=== PATIENT | male | born 1995 | race African-American/Black ===

== ENCOUNTER 2020-12-21 08:44 | Emergency (ER) | payer MEDICAID, SELFPAY ==
[2020-12-21 08:48] VITALS: BP 146/78; PULSE 79; RESP 16; TEMP 36.7; O2SAT 100
--- NOTE | 2020-12-21 09:03 | DI.RAD_ITS ---
Exam(s) XR HAND RT COMPLETE EXAM: XR HAND RT COMPLETE CLINICAL HISTORY: right hand. TECHNIQUE: 2D digital imaging was performed. COMPARISON: CR RIGHT LITTLE FINGER from 04/28/2014 FINDINGS: There is no evidence of acute fracture or dislocation. No radiopaque foreign body. No osseous lesio ns. IMPRESSION: No fracture evident. DATA REPOSITORY: RADIATION DOSE DELIVERED:
--- NOTE | 2020-12-21 09:20 | ED.GENADUL_ITS ---
Discharge Plan Disposition Patient Disposition: HOME Condition: Good Discharge Details Clinical Impression: Contusion of hand, right Primary Care Provider: Florencio Toure ED Provider: Nanci Steel Home Meds and New Rx's Prescriptions: No Action No Known Home Meds RF: 0 Discharge Instructions Instructions: Contusion in Adults (ED) Additional Instructions: motrin 600mg every 8 hours with food repeat evaluation in pcp in 2 weeks with ongoing pain return with persistent or worsening symptoms rest hand as much as possible Stand Alone Forms: Work Release Medical Decision Making Per radiology interpretation in my review there is no evidence of fracture to right hand Patient will take ibuprofen and Tylenol for pain Return precautions discussed patient expressed understanding, will take extra precautions to rest his hand Work note supplied Repeat images for persistent pain HPI General Mode of arrival: ambulatory . Date/Time Provider Initiated Documentation: 12/21/20 08:52 . Limitations to Documentation: no limitations . Information obtained by: patient . HPI Narrative: This 25-year-old male presents with right hand pain after a trip and fall 2 weeks ago. When he saw a lot of subsequently landed on his hand. He denies any additional injuries. He has had pain with the event occurred. States the pain is exacerbated with making. Describes the pain as an aching sensation predominantly to his right second digit and right fifth digit. Denies any strength or sensation change. Has not taken any [id number] medication. Related Data Home Medications Medication Instructions Recorded Confirmed Unknown [No Known Home Meds] 12/21/20 12/21/20 Allergies Allergy/AdvReac Type Severity Reaction Status Date / Time No Known Allergies Allergy Verified 12/21/20 08:52 General Stated Complaint: Orthopedic SUMIT: 4 Review of Systems Narrative: Review of systems obtained x3 and negative aside from where indicated in HPI PFSH Family History Mother Arthritis Father Essential hypertension Arthritis Sister Asthma Sister Neoplasm Sister No problems noted. Brother No problems noted. Grandfather No problems noted. Grandfather No problems noted. Grandmother No problems noted. Grandmother Diabetes Social History (Updated 09/28/18 @ 10:05 by Sandra Cortes LPN) Smoking/Tobacco Use Status: Current every day Tobacco Type: cigarettes Tobacco: How many years used: 4 Quit status: quit date established Smoking risk assessment performed?: Yes Alcohol Intake: never Drug use: Never Substance use type: does not use Household members: significant other and children Housing: apartment Communication Needs: Corrective Lenses What is your relationship status?: living with partner Panel score (0-1 are the most socially isolated patients): 1 What type of physical activity do you participate in: none Seatbelt use: always 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 Working smoke detector in home: Yes Fire extinguisher in home: Yes Carbon monox detector in home: Yes Do you feel safe at home: Yes Do you feel safe in your relationship?: Yes Exam Extrem Other: Right hand with tenderness to proximal phalanx on right hand, no visible sign of trauma Neurovascularly intact Also tenderness to fifth metacarpal, no visible sign of trauma, neurovascularly intact, no wrist tenderness Course Vital Signs Vital signs: Vital Signs Temperature 36.7 C 12/21/20 08:48 Pulse 79 12/21/20 08:48 Respiratory Rate 16 12/21/20 08:48 Blood Pressure 146/78 H 12/21/20 08:48 Pulse Oximetry 100 12/21/20 08:48 Temperature 36.7 C 12/21/20 08:48 Temperature Source Skin 12/21/20 08:48 Pulse 79 12/21/20 08:48 Respiratory Rate 16 12/21/20 08:48 Respiratory Effort Non-Labored 12/21/20 08:48 Blood Pressure 146/78 H 12/21/20 08:48 Blood Pressure Position Sitting 12/21/20 08:48 Pulse Oximetry 100 12/21/20 08:48 Oxygen Delivery Method Room Air 12/21/20 08:48 Oxygen Flow Rate 0 12/21/20 08:48 Pain Level 6 12/21/20 08:53
== END 2020-12-21 09:26 | disposition home or self-care (01) ==
PROVIDERS: Emergency Provider Physician Assistant; PCP Family Medicine
DX: S60.221A Contusion of right hand, initial encounter (principal); W01.0XXA Fall on same level from slipping, tripping and stumbling without subsequent striking against object, initial encounter
CPT/HCPCS: 99283; 73130; 99282

== ENCOUNTER 2021-03-17 16:20 | Emergency (ER) | payer MEDICAID, SELFPAY | END 2021-03-17 16:42 | LOC: ER 16:26 | PROVIDERS: PCP Family Medicine | DX: R69 Illness, unspecified (principal) ==

== ENCOUNTER 2021-06-17 11:08 | Emergency (ER) | payer MEDICAID, SELFPAY ==
[2021-06-17 11:12] VITALS: BP 133/80; PULSE 89; RESP 16; TEMP 37.1; O2SAT 100
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
== END 2021-06-17 11:38 | disposition home or self-care (01) ==
PROVIDERS: Emergency Provider Emergency Medicine; PCP Family Medicine
DX: T23.221A Burn of second degree of single right finger (nail) except thumb, initial encounter (principal); X15.0XXA Contact with hot stove (kitchen), initial encounter
CPT/HCPCS: 16020

== ENCOUNTER 2022-01-04 21:33 | Emergency (ER) | payer MEDICAID, SELFPAY ==
[2022-01-04 21:47] VITALS: BP 138/87; PULSE 82; RESP 16; TEMP 37.1; O2SAT 100
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
== END 2022-01-04 22:18 | disposition home or self-care (01) ==
PROVIDERS: Emergency Provider Student in an Organized Health Care Education/Training Program; PCP Family Medicine
DX: S61.211A Laceration without foreign body of left index finger without damage to nail, initial encounter (principal); F17.210 Nicotine dependence, cigarettes, uncomplicated; W27.4XXA Contact with kitchen utensil, initial encounter
CPT/HCPCS: 99281; 99282

== ENCOUNTER 2022-11-02 22:48 | Emergency (ER) | payer MEDICAID, SELFPAY ==
[2022-11-02 22:53] VITALS: BP 131/60; PULSE 110; RESP 16; TEMP 36.7; O2SAT 98
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
[2022-11-02] MEDS: Clindamycin 150 MG CAP, 12 CAPS/BTL 450 MG PO (23:11)
== END 2022-11-02 23:14 | disposition home or self-care (01) ==
PROVIDERS: Emergency Provider Student in an Organized Health Care Education/Training Program; PCP Family Medicine
DX: L03.113 Cellulitis of right upper limb (principal)
CPT/HCPCS: 99283

== ENCOUNTER 2023-03-02 19:15 | Emergency (ER) | payer MEDICAID, SELFPAY ==
[2023-03-02 19:19] VITALS: BP 171/109; PULSE 66; RESP 20; TEMP 36.6; O2SAT 99
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
[2023-03-02 20:23] VITALS: BP 147/97
[2023-03-02 20:45] LABS: COVID-19 PCR Negative (Negative); Influenza A PCR Negative (Negative); Influenza B PCR Negative (Negative); RSV PCR Negative (Negative)
[2023-03-02 20:50] LABS: Source Nasopharynx
--- NOTE | 2023-03-03 16:00 | NUR.NOTE ---
Accessed pt chart to fax the note to [facility]. Nursing Note:
== END 2023-03-02 20:33 | disposition home or self-care (01) ==
PROVIDERS: Emergency Provider Nurse Practitioner Family; PCP Family Medicine
DX: H10.32 Unspecified acute conjunctivitis, left eye; R03.0 Elevated blood-pressure reading, without diagnosis of hypertension
CPT/HCPCS: 87637; 99283

== ENCOUNTER 2023-10-03 07:07 | Emergency (ER) | payer SELFPAY ==
--- NOTE | 2023-10-03 07:00 | RT.EKG_ITS ---
APPROVED REPORT Exam: Resting ECG Reason for Exam: Dyspnea, AMS Patient Location: E HR:92 bpm ECG Measurements Heart Rate 92 AXIS DC 193 P 54 QRSd 98 QRS 46 QT 348 T 46 QTc 431 Conclusion Sinus rhythm 92 normal axis no stemi
[2023-10-03 07:12] VITALS: BP 192/89; PULSE 95; RESP 18; TEMP 37.2; O2SAT 96
--- NOTE | 2023-10-03 07:15 | DI.CT_ITS ---
Exam(s) CT HEAD WO EXAM: CT HEAD WO CLINICAL HISTORY: AMS. TECHNIQUE: Imaging Protocol: Axial computed tomography images with coronal and sagittal reformatted images were created and reviewed COMPARISON: CT HEAD WITHOUT CONTRAST from 06/12/2012 FINDINGS: Ventricles and Extra axial spaces: Normal in size and morphology for the patient's age. Hemorrhage: None. Cerebral parenchyma: Normal. Midline shift: None. Brainstem/Cerebellum: Normal. Calvarium: Normal. Visualized Paranasal sinuses/Mastoids: There is been prior sinus surgery involving the maxillary sinu ses bilaterally. There is mucosal thickening seen in the maxillary sinuses and ethmoid air cells christiano aterally. No fluid levels are seen. Soft Tissues: Unremarkable. IMPRESSION: No acute intracranial process. RADIATION DOSE DELIVERED: 835.87mGy.cm Total DLP DATA REPOSITORY: All CT scans at this facility are submitted to the National Radiology Data Registry (NRDR) Dose Index Registry (DIR) with the [employer] (ACR). RADIATION OPTIMIZATION: All CT scans at this facility use at least one of these dose optimization te chniques: automated exposure control; mA and/or kV adjustment per patient size (includes targeted exa ms where dose is matched to clinical indication); or iterative reconstruction.
--- NOTE | 2023-10-03 07:20 | DI.RAD_ITS ---
Exam(s) XR CHEST 1V IN DI DEPT EXAM: XR CHEST 1V IN DI DEPT CLINICAL HISTORY: cough TECHNIQUE: 2D digital imaging was performed of the chest. One image was obtained. An AP view was ob tained. COMPARISON: CR RIGHT SHOULDER COMPLETE from 10/27/2017 FINDINGS: MEDIASTINUM: Normal. HEART: Normal. PULMONARY VASCULATURE: Normal. LUNGS: Clear. PLEURAL SPACE: No pleural effusion or pneumothorax. BONE:Within normal limits for the patient's age. OTHER FINDINGS:Normal. IMPRESSION: No acute pulmonary findings. DATA REPOSITORY: RADIATION DOSE DELIVERED:
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
[2023-10-03] MEDS: Normal Saline 1,000 ML 1000 ML IV ×2 (07:40→09:38)
[2023-10-03 07:45] LABS: Abs Immature Grans 0.04 10^3/uL (0.0-0.06); Absolute Basophil Count 0.05 10^3/uL (0.0-0.2); Absolute Eosinophil Count 0.59 10^3/uL (0.0-0.7); Absolute Lymphocyte Count 1.68 10^3/uL (1.2-3.4); Absolute Monocyte Count 0.74 10^3/uL (0.1-0.8); Absolute Neutrophil Count 6.53 10^3/uL (1.2-6.7); Basophils % 0.5; Eosinophils % 6.1; HCT 45.4 % (40.0-50.0); HGB 15.3 g/dL (13.5-17.5); Immature Grans % 0.4; Lymphocytes % 17.4; MCH 27.8 pg (27.0-33.0); MCHC 33.7 % (32.0-36.0); MCV 82 fL (80-95); MPV 9.5 fL (8.0-11.0); Monocytes % 7.7; Neutrophils % 67.9; Platelet Count 337 10^3/uL (130-400); RBC 5.51 10^6/uL (4.36-5.78); RDW 13.2 % (11.8-14.1); RDW-SD 39.6 fL; WBC 9.63 10^3/uL (4.4-10.8)
[2023-10-03 07:46] LABS: Lactate 2.1 mmol/L (0.6-1.4)
[2023-10-03 08:05] LABS: ALT 16 U/L (16-63); AST 21 U/L (15-37); Albumin 3.6 g/dL (3.4-5.0); Alkaline Phosphatase 113 U/L (46-116); Anion Gap 10.4 mmol/L (3-11); BUN 11 mg/dL (7-18); Bilirubin, Total 0.4 mg/dL (0.2-1.0); CO2 26.6 mmol/L (21.0-32.0); CREATININE 1.2 mg/dL (0.70-1.30); Calcium 8.8 mg/dL (8.5-10.1); Chloride 107 mmol/L (98-107); Estimated GFR 84.48 (mL/min/1.73m2); Glucose 102 mg/dL (74-106); Magnesium 2.1 mg/dL (1.8-2.4); Sodium 144 mmol/L (136-145); Troponin I < 50 ng/L (< or =60)
[2023-10-03 08:15] LABS: COVID-19 PCR Negative (Negative); Influenza A PCR Negative (Negative); Influenza B PCR Negative (Negative); RSV PCR Negative (Negative)
[2023-10-03 08:16] LABS: Source Nasopharynx
[2023-10-03 08:49] VITALS: PULSE 75; RESP 16; O2SAT 96
--- NOTE | 2023-10-03 09:21 | NUR.NOTE ---
Nursing Note: ambulated to BR, denies episode of dizziness or lightheadedness. Requested and was given cup of water. Offered breakfast or a snack and pt declined at this time.
[2023-10-03 09:23] LABS: Lactate 0.7 mmol/L (0.6-1.4)
[2023-10-03 09:26] LABS: Bilirubin Negative (Negative); Blood Negative (Negative); Clarity Clear (Clear); Glucose Negative (Negative); Ketones Negative (Negative); Leukocyte Esterase Negative (Negative); Nitrite Negative (Negative); Urobilinogen 0.2 mg/dL (Up to 0.2)
[2023-10-03 09:46] LABS: *AMPHETAMINES SCREEN URINE Negative (Negative); *BARBITURATES SCREEN URINE Negative (Negative); *BENZODIAZEPINES SCREEN URINE Negative (Negative); Cannabinoids THC Negative (Negative); Cocaine Screen,Urine Negative (Negative); METHADONE URINE SCREEN Negative (Negative); OPIATES URINE SCREEN Negative (Negative)
[2023-10-03 09:47] LABS: Tricyclic Antidepressants Negative (Negative)
[2023-10-03 10:20] VITALS: BP 120/60; PULSE 88; TEMP 37; O2SAT 100
== END 2023-10-03 10:28 | disposition home or self-care (01) ==
PROVIDERS: Emergency Provider Emergency Medicine; PCP Family Medicine
DX: R55 Syncope and collapse (principal); F17.210 Nicotine dependence, cigarettes, uncomplicated
CPT/HCPCS: 36415; 80053; 80307; 82962; 87637; 93005; 96360; 96361; 99285; 70450; 71045; 81003; 83605; 83735; 84484; 85025; 93010; 99284